=== PATIENT | male | born 1980 | race Caucasian/White ===

== ENCOUNTER → 2021-07-16 | Outpatient (CLI) | payer OTHER | LOC: KOH-I 13:24 | DX: Z01.818 Encounter for other preprocedural examination (principal); M19.012 Primary osteoarthritis, left shoulder | CPT/HCPCS: 73200 ==

== ENCOUNTER → 2021-11-22 | Outpatient (CLI) | payer OTHER ==
[~2021-11-22] MED LIST: ARTHRITIS PAIN50 GM TP; HYDROCODON-ACE1 EAC6 PO; METHOCARBAMOL500 MG PO; MIRTAZAPINE15 MG PO; PROVENTIL HFA6.7 GM INH
[2021-11-22 10:57] LABS: BUN/CREATININE RATIO 12 (0-10)
[2021-11-22 15:08] LABS: HEMOGLOBIN 13.9 gm/dl (14.0-17.5); RED BLOOD COUNT 4.49 M/UL (4.20-5.50); WHITE BLOOD COUNT 10.7 K/UL (4.5-11.0)
== END ==
LOC: OPSV2 09:55 → EDSTATUS 10:30
PROVIDERS: Anesthesiology; Orthopaedic Surgery
DX: Z01.818 Encounter for other preprocedural examination (principal); M19.012 Primary osteoarthritis, left shoulder
CPT/HCPCS: 71046; 80048; 85025; 93005

== ENCOUNTER → 2021-11-30 | Day surgery (SDC) | payer OTHER ==
[~2021-11-30] VITALS: Ht 180.3 cm; Wt 72.1 kg
[~2021-11-30] MED LIST changes: +KENALOG 0.5% CR15 GM EXT
[2021-11-30 07:04] LABS: BUN/CREATININE RATIO 11 (0-10)
== END | disposition home or self-care (01) ==
LOC: OR 05:56 → EDSTATUS 12:30
PROVIDERS: Orthopaedic Surgery
DX: M19.012 Primary osteoarthritis, left shoulder (principal); M25.712 Osteophyte, left shoulder; S43.032A Inferior subluxation of left humerus, initial encounter; I10 Essential (primary) hypertension; X58.XXXA Exposure to other specified factors, initial encounter; Z20.822 Contact with and (suspected) exposure to COVID-19; Z72.0 Tobacco use; Z72.89 Other problems related to lifestyle
CPT/HCPCS: 36415; 73020; 80048; 86850; 86900; 86901; C1776; J0171; J0690; J1100; J1885; J2001; J2250; J2370; J2405; J2704; J2710; J2795; J3010; J7120